=== PATIENT | female | born 1960 | race Caucasian/White ===

== ENCOUNTER 2017-06-13 19:26 | Emergency (ER) | payer MEDICAID ==
[~2017-06-13] VITALS: Ht 152.4 cm; Wt 92.0 kg
[2017-06-13] MEDS ORDERED: KETOROLAC 60MG/2ML VIAL IM ONE (23:45)
[2017-06-14 01:19] VITALS: BP 138/61
== END 2017-06-14 01:20 | disposition home or self-care (01) ==
LOC: ER 21:02
DX: M79.641 Pain in right hand (principal); I10 Essential (primary) hypertension; E11.9 Type 2 diabetes mellitus without complications; E78.00 Pure hypercholesterolemia, unspecified; Z88.8 Allergy status to other drugs, medicaments and biological substances
CPT/HCPCS: 73130; 96372; 99284; J1885